=== PATIENT | female | born 1950 | race Caucasian/White ===

== ENCOUNTER 2019-02-06 09:00 | Emergency (ER) | payer OTHER ==
[~2019-02-06] VITALS: Ht 160 cm; Wt 56.2 kg
[2019-02-06 09:06] VITALS: BP 119/76
--- NOTE | 2019-02-06 09:31 | NUR ---
DR PICKENS AT BEDSIDE
--- NOTE | 2019-02-06 09:35 | NUR ---
69 Y/O FEMALE PRESENTING WITH C/C OF LOWER ABD PAIN RADIATING TO BACK. PER PATIENT PRESSURE ON ABD IS /10 PAIN SINCE SATURDAY ; WHEN URINATING BURNING SENSATION /. PER PT NO MEDICAL HX. BOWEL SOUNDS NORMOACTIVE. SIDE RAIL X1.
[2019-02-06 09:38] LABS: BILIRUBIN,URINE NEGATIVE (NEGATIVE); BLOOD, URINE 1+ (NEGATIVE); COLOR,URINE YELLOW (YELLOW); LEUKOCYTE ESTERASE ,URINE 3+ (NEGATIVE); NITRITE, URINE NEGATIVE (NEGATIVE); UGLUCOSE NEGATIVE (NEGATIVE)
[2019-02-06 09:55] LABS: APPEARANCE,URINE HAZY (CLEAR)
[2019-02-06 09:56] LABS: RBC,URINE 0-5 /HPF (0-5)
[2019-02-06 09:57] LABS: WBC,URINE 16-25 (MOD) /HPF (0-5)
[2019-02-06 10:01] LABS: BASOPHILS % (AUTO) 0.2 % (0.0-2.0); EOSINOPHILS % (AUTO) 0.2 % (0.0-4.0); HEMATOCRIT 40.2 % (36-48); HEMOGLOBIN 13.5 g/dL (12.0-16.0); LYMPHOCYTES % (AUTO) 11.3 % (20.5-51.1); MEAN CORPUSCULAR HEMOGLOBIN 31 pg (27-31); MEAN CORPUSCULAR HGB CONC 34 g/dL (33-37); MEAN CORPUSCULAR VOLUME 92.2 fL (80-94); MONOCYTES # (AUTO) 0.7 K/uL (0.8-1.0); MONOCYTES % (AUTO) 7.6 % (1.7-9.3); NEUTROPHILS # (AUTO) 7.4 K/uL (1.8-7.7); NEUTROPHILS % (AUTO) 80.7 % (42.2-75.2); PLATELET COUNT (AUTO) 228 K/uL (140-450); RED BLOOD CELL COUNT(AUTO) 4.36 MIL/uL (4.20-5.40); RED CELL DISTRIBUTION WIDTH 13.3 % (11.6-13.7); WHITE BLOOD COUNT (AUTO) 9.2 K/uL (4.8-10.8)
--- NOTE | 2019-02-06 10:04 | NUR ---
PT WENT TO CT VIA WHEELCHAIR.
[2019-02-06 10:11] LABS: ANION GAP 10.3 (8-16); CARBON DIOXIDE 29.9 mmol/L (21-32); CREATININE 0.6 mg/dL (0.6-1.3); POTASSIUM 4.2 mmol/L (3.5-5.1)
--- NOTE | 2019-02-06 10:12 | NUR ---
PT RETURNED FROM CT VIA WHEELCHAIR
[2019-02-06 10:17] LABS: ALBUMIN 3.3 g/dL (3.4-5.0); TOTAL BILIRUBIN 0.2 mg/dL (0.0-1.0)
[2019-02-06 11:09] VITALS: BP 103/61
--- NOTE | 2019-02-06 11:09 | NUR ---
Note lynn in EDM - 02/06/19 at 1118 by MEDOF Patient discharged with v/s stable. Written and verbal after care instructions given and explained. Patient alert, oriented and verbalized understanding of instructions. Ambulatory with steady gait. All questions addressed prior to discharge. ID band removed. Patient advised to follow up with PMD. Rx of MYLANTA, CIPROFLOXACIN given. Patient educated on indication of medication including possible reaction and side effects. Opportunity to ask questions provided and answered.
--- NOTE | 2019-02-06 11:09 | NUR ---
Patient discharged with v/s stable. Written and verbal after care instructions given and explained. Patient alert, oriented and verbalized understanding of instructions. Ambulatory with steady gait. All questions addressed prior to discharge. ID band removed. Patient advised to follow up with PMD. Rx of MYRALAX, CIPROFLOXACIN given. Patient educated on indication of medication including possible reaction and side effects. Opportunity to ask questions provided and answered
== END 2019-02-06 11:09 | disposition home or self-care (01) ==
LOC: MED 09:00
DX: N39.0 Urinary tract infection, site not specified (principal); K59.00 Constipation, unspecified; Z98.890 Other specified postprocedural states; Z88.8 Allergy status to other drugs, medicaments and biological substances; Z91.018 Allergy to other foods
CPT/HCPCS: 36415; 80053; 81001; 85025; 87086; 99284